=== PATIENT | female | born 1975 | race Caucasian/White ===

== ENCOUNTER 2016-07-19 07:08 | Emergency (ER) | payer MEDICAID ==
[~2016-07-19] VITALS: Ht 157.5 cm; Wt 113.6 kg
[~2016-07-19 07:08] MED LIST: ACET500T76 PO; ALPR0.5T6 PO; AMIT25TA PO; AMLO2.5T PO; ASCO100072 PO; ASPI-515 PO; ASPI-621 PO; BENA40TA2 PO; CHOL100018 PO; CHOL20003 PO; CLOT30CR17 TP; CYAN500T2 PO; DOXE75CA PO; FAMO20TA7 PO; FLUT1DIS3 INH; FOLI-17 PO; GABA300C10 PO; HYDR-3144 PO; HYDR-3307 PO; LEVO75TA PO; METF500T4 PO; MULT1TAB10 PO; MYCO500T3 PO; OMEG300C PO; POTA20TA14 PO; PRED5TAB19 PO; SIMV20TA3 PO; SUMA100T4 PO; TOPI-33 PO
[2016-07-19] MEDS ORDERED: ONDANSETRON 2MG/ML, 2ML IVPush ONE (08:00)
[2016-07-19] MEDS ORDERED: ONDANSETRON 2MG/ML, 2ML ONE (08:18)
[2016-07-19] MEDS ORDERED: MORPHINE SULFATE 4 MG/ML, 1ML ONE ×2 (08:18→09:11)
[2016-07-19] MEDS: MORPHINE SULFATE 4 MG/ML, 1ML IVPush PRN ×2 (08:19→09:12)
[2016-07-19 08:33] LABS: PATH.CAST-FLAG NOT PRESENT; SPERM-FLAG NOT PRESENT; SRC-FLAG NOT PRESENT; XTAL-FLAG NOT PRESENT; YLC-FLAG NOT PRESENT
[2016-07-19 08:57] LABS: HEMOGLOBIN 14.2 g/dL (11.7-16.4)
[2016-07-19] MEDS ORDERED: SODIUM CHLORIDE FLUSH 10ML SYR IVF ONE (09:00)
[2016-07-19 09:06] VITALS: BP 134/78
[2016-07-19 09:10] LABS: ASPARTATE AMINO TRANSFERASE 17 U/L (15-37); BLOOD UREA NITROGEN 13 mg/dL (7-18)
[2016-07-19] MEDS ORDERED: NITR100C6 PO (09:17)
== END 2016-07-19 11:06 | disposition home or self-care (01) ==
LOC: ED 09:04
DX: G89.29 Other chronic pain (principal); M79.661 Pain in right lower leg; M33.90 Dermatopolymyositis, unspecified, organ involvement unspecified; I10 Essential (primary) hypertension; E11.9 Type 2 diabetes mellitus without complications; E03.9 Hypothyroidism, unspecified; G43.909 Migraine, unspecified, not intractable, without status migrainosus
CPT/HCPCS: 36415; 73590; 80053; 81001; 85025; 85651; 87040; 87086; 93971; 96374; 96375; 96376; 99285; J2405

== ENCOUNTER 2016-08-09 11:53 | Emergency (ER) | payer MEDICAID ==
[~2016-08-09] VITALS: Ht 157.5 cm; Wt 111.8 kg
[~2016-08-09 11:53] MED LIST changes: +CLIN300C93 PO; +HYDR25TA11 PO; +NITR100C6 PO
[2016-08-09 11:54] VITALS: BP 146/92
[2016-08-09 13:19] LABS: HEMOGLOBIN 12.9 g/dL (11.7-16.4)
[2016-08-09 13:31] LABS: BLOOD UREA NITROGEN 15 mg/dL (7-18)
[2016-08-09] MEDS ORDERED: HYDROmorphone 1 MG/ML, 1ML ONE (13:59)
[2016-08-09] MEDS ORDERED: HYDROmorphone 1 MG/ML, 1ML IM ONE (14:00)
[2016-08-09] MEDS ORDERED: ONDANSETRON ODT 4 MG PO ONE (14:00)
[2016-08-09] MEDS ORDERED: ONDANSETRON ODT 4 MG ONE (14:07)
== END 2016-08-09 14:10 | disposition home or self-care (01) ==
LOC: ED 12:45
DX: M25.571 Pain in right ankle and joints of right foot (principal); K21.9 Gastro-esophageal reflux disease without esophagitis; I10 Essential (primary) hypertension; E11.9 Type 2 diabetes mellitus without complications; E03.9 Hypothyroidism, unspecified
CPT/HCPCS: 36415; 80048; 82040; 85025; 93971; 96372; 99285; J1170; Q0162

== ENCOUNTER 2016-11-22 09:35 | Emergency (ER) | payer MEDICAID ==
[~2016-11-22] VITALS: Ht 157.5 cm; Wt 114.0 kg
[~2016-11-22 09:35] MED LIST changes: +ACET500T71 PO; -ACET500T76 PO; +CHOL2000 PO; -CHOL20003 PO
[2016-11-22 09:38] VITALS: BP 140/84
[2016-11-22] MEDS ORDERED: HYDROcodone/APAP 5/325 TABLET ONE (10:23)
[2016-11-22] MEDS ORDERED: SODIUM CHLORIDE FLUSH 10ML SYR IVF ONE (10:30)
[2016-11-22] MEDS ORDERED: HYDROcodone/APAP 5/325 TABLET PO ONE (10:30)
[2016-11-22 11:01] LABS: BLOOD UREA NITROGEN 14 mg/dL (7-18)
[2016-11-22 11:03] LABS: ASPARTATE AMINO TRANSFERASE 13 U/L (15-37)
[2016-11-22] MEDS ORDERED: OMNIPAQUE 350 MG/ML, 75ML BOTTLE ONE (11:37)
== END 2016-11-22 12:19 | disposition home or self-care (01) ==
LOC: ED 12:16
DX: K11.21 Acute sialoadenitis (principal); I10 Essential (primary) hypertension; E11.9 Type 2 diabetes mellitus without complications; E03.9 Hypothyroidism, unspecified; E78.5 Hyperlipidemia, unspecified
CPT/HCPCS: 36415; 70487; 80053; 85025; 99285; Q9967

== ENCOUNTER 2017-01-06 11:21 | Emergency (ER) | payer MEDICAID ==
[~2017-01-06] VITALS: Ht 160 cm; Wt 115.7 kg
[~2017-01-06 11:21] MED LIST changes: +CHOL100012 PO; -CHOL100018 PO; +CLIN300C8 PO; -CLIN300C93 PO; -HYDR-3144 PO; +HYDR-3245 PO; -TOPI-33 PO; +TOPI25TA8 PO
[2017-01-06 11:26] VITALS: BP 146/88
[2017-01-06] MEDS ORDERED: PHENAZOPYRIDINE 200 MG TABLET PO ONE (12:00)
[2017-01-06 12:03] LABS: PATH.CAST-FLAG NOT PRESENT; SPERM-FLAG NOT PRESENT; SRC-FLAG NOT PRESENT; XTAL-FLAG NOT PRESENT; YLC-FLAG NOT PRESENT
[2017-01-06] MEDS ORDERED: PHENAZOPYRIDINE 200 MG TABLET ONE ×2 (12:09)
== END 2017-01-06 12:33 | disposition home or self-care (01) ==
LOC: ED 12:27
DX: N30.90 Cystitis, unspecified without hematuria (principal); E11.9 Type 2 diabetes mellitus without complications; I10 Essential (primary) hypertension; F41.9 Anxiety disorder, unspecified; K21.9 Gastro-esophageal reflux disease without esophagitis; E78.5 Hyperlipidemia, unspecified; E03.9 Hypothyroidism, unspecified
CPT/HCPCS: 81001; 87077; 87086; 99284

== ENCOUNTER 2017-05-09 10:18 | Emergency (ER) | payer MEDICAID ==
[~2017-05-09] VITALS: Ht 157.5 cm; Wt 117.6 kg
[2017-05-09] MEDS ORDERED: CYCL5TAB PO (11:19)
[2017-05-09] MEDS ORDERED: BENA40TA2 PO (11:19)
[2017-05-09] MEDS ORDERED: CLOT15CR5 TP (11:19)
[2017-05-09] MEDS ORDERED: NYST60PO TP (11:19)
[2017-05-09] MEDS ORDERED: HYDR-3245 PO (11:19)
[2017-05-09 11:37] LABS: MICROSCOPIC AUTO
[2017-05-09] MEDS ORDERED: TRIAMCINOLONE CRM 0.1%, 15GM TP ONE (12:06)
[2017-05-09] MEDS ORDERED: TRIAMCINOLONE ACETONIDE 40 MG/ML, 1ML IM ONE (13:11)
[2017-05-09 13:15] VITALS: BP 172/80
== END 2017-05-09 14:05 | disposition home or self-care (01) ==
LOC: ED 13:30
DX: L20.9 Atopic dermatitis, unspecified (principal); K21.9 Gastro-esophageal reflux disease without esophagitis; E03.9 Hypothyroidism, unspecified; E11.9 Type 2 diabetes mellitus without complications; I10 Essential (primary) hypertension
CPT/HCPCS: 81001; 96372; 99283; J3301

== ENCOUNTER 2017-07-22 20:14 | Emergency (ER) | payer MEDICAID ==
[~2017-07-22] VITALS: Ht 160 cm; Wt 118.0 kg
[~2017-07-22 20:14] MED LIST changes: +CLOT15CR5 TP; +CYCL5TAB PO; +NYST60PO TP
[2017-07-22 20:57] LABS: BASOPHILS # (AUTO) 0.01 x10^3/uL (0-0.1); BASOPHILS % (AUTO) 0 % (0-1); EOSINOPHILS # (AUTO) 0.07 x10^3/uL (0-0.4); EOSINOPHILS % (AUTO) 1 % (1-7); LYMPHOCYTES # (AUTO) 1.74 x10^3/uL (1-3.4); LYMPHOCYTES % (AUTO) 19 % (22-44); MD NO; MEAN CORPUSCULAR HEMOGLOBIN 26.9 pg (27.0-34.8); MEAN CORPUSCULAR HGB CONC 32.8 g/dL (32.4-35.8); MEAN CORPUSCULAR VOLUME 81.9 fL (80-100); MEAN PLATELET VOLUME 8.4 fL (7.4-10.4); MONOCYTES # (AUTO) 0.37 x10^3/uL (0.2-0.8); MONOCYTES % (AUTO) 4 % (2-9); NEUTROPHILS # (AUTO) 7.04 x10^3/uL (1.8-6.8); NEUTROPHILS % (AUTO) 76 % (42-75); PLATELET COUNT 212 x10^3/uL (130-400); RED BLOOD COUNT 5.18 x10^6/uL (3.82-5.3)
[2017-07-22 21:06] LABS: ALANINE AMINOTRANSFERASE 17 U/L (12-78); ALBUMIN 3.6 g/dL (3.4-5.0); ANION GAP 6 mmol/L (5-15); CALCIUM 8.8 mg/dL (8.5-10.1); CHLORIDE 108 mmol/L (98-107)
[2017-07-22 21:10] LABS: MICROSCOPIC AUTO
[2017-07-22 21:11] LABS: ALKALINE PHOSPHATASE 107 U/L (45-117); BILIRUBIN,TOTAL 0.3 mg/dL (0.2-1.0); CREATINE KINASE, TOTAL 68 U/L (26-192); TOTAL PROTEIN 7.3 g/dL (6.4-8.2); TROPONIN I < 0.015 ng/mL (0.000-0.045)
[2017-07-22 21:12] LABS: CULTURE INDICATED? YES
[2017-07-22 21:39] VITALS: BP 139/78
== END 2017-07-22 21:43 | disposition home or self-care (01) ==
LOC: ED 21:35
DX: I10 Essential (primary) hypertension (principal); N30.01 Acute cystitis with hematuria; E03.9 Hypothyroidism, unspecified; G43.909 Migraine, unspecified, not intractable, without status migrainosus; E11.9 Type 2 diabetes mellitus without complications; E78.5 Hyperlipidemia, unspecified; K21.9 Gastro-esophageal reflux disease without esophagitis
CPT/HCPCS: 36415; 71045; 80053; 81001; 82550; 84484; 85025; 87086; 93005; 99285

== ENCOUNTER 2018-03-05 11:22 | Emergency (ER) | payer MEDICAID ==
[~2018-03-05] VITALS: Ht 160 cm; Wt 113.0 kg
[~2018-03-05 11:22] MED LIST changes: -AMLO2.5T PO; +AMLO2.5T3 PO; -BENA40TA2 PO; +BENA40TA3 PO; +METF500T17 PO; -METF500T4 PO
[2018-03-05] MEDS ORDERED: TRAM50TA2 PO (12:01)
[2018-03-05] MEDS ORDERED: HYDR25TA6 PO (12:01)
[2018-03-05] MEDS ORDERED: TOPI25CA PO (12:01)
[2018-03-05] MEDS ORDERED: MORPHINE SULFATE 4 MG/ML, 1ML IVPush PRN (12:30)
[2018-03-05] MEDS ORDERED: ONDANSETRON 2MG/ML, 2ML IVPush ONE (12:30)
[2018-03-05] MEDS ORDERED: SODIUM CHLORIDE FLUSH 10ML SYR IVF ONE (12:30)
[2018-03-05] MEDS ORDERED: MORPHINE SULFATE 4 MG/ML, 1ML ONE (12:33)
[2018-03-05] MEDS ORDERED: ONDANSETRON 2MG/ML, 2ML ONE (12:33)
[2018-03-05 12:35] LABS: BASOPHILS # (AUTO) 0.07 x10^3/uL (0-0.1); BASOPHILS % (AUTO) 1 % (0-1); EOSINOPHILS # (AUTO) 0.07 x10^3/uL (0-0.4); EOSINOPHILS % (AUTO) 1 % (1-7); LYMPHOCYTES % (AUTO) 25 % (22-44); MD NO; MEAN CORPUSCULAR HGB CONC 32.9 g/dL (32.4-35.8); MEAN CORPUSCULAR VOLUME 82.1 fL (80-100); MONOCYTES # (AUTO) 0.35 x10^3/uL (0.2-0.8); MONOCYTES % (AUTO) 4 % (2-9); NEUTROPHILS # (AUTO) 5.58 x10^3/uL (1.8-6.8); NEUTROPHILS % (AUTO) 69 % (42-75); PLATELET COUNT 198 x10^3/uL (130-400); RED BLOOD COUNT 5.31 x10^6/uL (3.82-5.3); RED CELL DISTRIBUTION WIDTH 15.3 % (9.6-15.2)
[2018-03-05 12:46] LABS: ALANINE AMINOTRANSFERASE 25 U/L (12-78); ALBUMIN 3.8 g/dL (3.4-5.0); ANION GAP 10 mmol/L (5-15); CALCIUM 9.2 mg/dL (8.5-10.1); CHLORIDE 108 mmol/L (98-107)
[2018-03-05 12:49] LABS: ALKALINE PHOSPHATASE 90 U/L (45-117); BILIRUBIN,TOTAL 0.3 mg/dL (0.2-1.0); TOTAL PROTEIN 7.8 g/dL (6.4-8.2)
[2018-03-05 13:00] LABS: MICROSCOPIC AUTO
[2018-03-05 13:01] LABS: CULTURE INDICATED? YES
[2018-03-05] MEDS ORDERED: ONDANSETRON ODT 4 MG ONE (13:09)
[2018-03-05] MEDS ORDERED: HYDROmorphone 2 MG/ML, 1ML ONE (13:09)
[2018-03-05] MEDS ORDERED: ONDANSETRON ODT 4 MG PO ONE (13:30)
[2018-03-05] MEDS ORDERED: HYDROmorphone 2 MG/ML, 1ML IM ONE (13:30)
[2018-03-05] MEDS ORDERED: OMNIPAQUE 350 MG/ML, 100ML BOTTLE ONE (15:15)
[2018-03-05] MEDS ORDERED: MAALOX/HYOSCYAMINE/LIDOCAINE 45 ML BTL PO ONE (16:00)
[2018-03-05] MEDS ORDERED: MAALOX/HYOSCYAMINE/LIDOCAINE 45 ML BTL ONE (16:15)
[2018-03-05 16:47] VITALS: BP 168/75
== END 2018-03-05 17:01 | disposition home or self-care (01) ==
LOC: ED 13:20
DX: R10.11 Right upper quadrant pain (principal); E11.9 Type 2 diabetes mellitus without complications; F41.1 Generalized anxiety disorder; E03.9 Hypothyroidism, unspecified
CPT/HCPCS: 36415; 74022; 74177; 76700; 80053; 81001; 83690; 85025; 87086; 87147; 96372; 99285; J1170; Q0162; Q9967

== ENCOUNTER 2018-08-28 10:37 | Emergency (ER) | payer MEDICAID ==
[~2018-08-28] VITALS: Ht 160 cm; Wt 99.3 kg
[~2018-08-28 10:37] MED LIST changes: -AMLO2.5T3 PO; +AMLO2.5T5 PO; -ASPI-621 PO; +ASPI81TA45 PO; +HYDR25TA6 PO; +TOPI25CA PO; +TRAM50TA2 PO
--- NOTE | 2018-08-28 11:47 | NUR ---
BUCKET TURNER: PT TO ROOM FROM [facility].
--- NOTE | 2018-08-28 12:15 | NUR ---
TASK RN: patient transported for xray
[2018-08-28] MEDS ORDERED: KETOROLAC 30 MG/1 ML ONE (12:21)
[2018-08-28 12:28] LABS: MICROSCOPIC INDICATED
[2018-08-28] MEDS ORDERED: KETOROLAC 30 MG/1 ML IM ONE (12:30)
[2018-08-28 12:36] LABS: CULTURE INDICATED? YES
--- NOTE | 2018-08-28 12:52 | NUR ---
PT CHART REVIEWED AND PLACED FOR RECHECK.
[2018-08-28 12:59] VITALS: BP 120/71
== END 2018-08-28 13:58 | disposition home or self-care (01) ==
LOC: ED 12:07
DX: M54.6 Pain in thoracic spine (principal); K21.9 Gastro-esophageal reflux disease without esophagitis; E78.5 Hyperlipidemia, unspecified; E03.9 Hypothyroidism, unspecified; E11.9 Type 2 diabetes mellitus without complications; I10 Essential (primary) hypertension
CPT/HCPCS: 71045; 72072; 81001; 87086; 96372; 99284; J1885

== ENCOUNTER 2018-10-31 11:56 | Emergency (ER) | payer MEDICAID ==
[~2018-10-31] VITALS: Ht 160 cm; Wt 99.7 kg
--- NOTE | 2018-10-31 12:20 | NUR ---
PT PRESENTS WITH CHRONIC LOWER BACK/HIP PAIN. PAIN RADIATED FROM LOWER BACK DOWN LEFT LEG INTO FOOT. ER MD AT BEDSIDE
[2018-10-31] MEDS ORDERED: HYDROmorphone 2 MG/ML, 1ML ONE (12:37)
--- NOTE | 2018-10-31 12:43 | NUR ---
TASK RN: PT MEDICATED FOR PAIN PER EMAR. WILL REASSESS. PAIN PRE-MED 12/12
--- NOTE | 2018-10-31 12:44 | NUR ---
TASK RN: PT TO XRAY
[2018-10-31] MEDS ORDERED: HYDROmorphone 2 MG/ML, 1ML IM ONE (13:00)
[2018-10-31 13:02] VITALS: BP 157/99
[2018-10-31] MEDS ORDERED: MAALOX/HYOSCYAMINE/LIDOCAINE 45 ML BTL ONE (13:34)
[2018-10-31] MEDS ORDERED: MAALOX/HYOSCYAMINE/LIDOCAINE 45 ML BTL PO ONE (14:00)
== END 2018-10-31 15:03 | disposition home or self-care (01) ==
LOC: ED 12:39
DX: G89.29 Other chronic pain (principal); M54.16 Radiculopathy, lumbar region; M54.5 Low back pain; K21.9 Gastro-esophageal reflux disease without esophagitis; I10 Essential (primary) hypertension; E78.5 Hyperlipidemia, unspecified; E11.9 Type 2 diabetes mellitus without complications
CPT/HCPCS: 72110; 93005; 96372; 99283; J1170

== ENCOUNTER 2019-02-22 11:02 | Inpatient (IN) | payer MEDICAID ==
[~2019-02-22] VITALS: Ht 160 cm; Wt 108.2 kg
[~2019-02-22 11:02] MED LIST changes: +CEPH-376 PO; -CYAN500T2 PO; +CYAN500T54 PO; +HYDR-3237 PO; -HYDR-3307 PO; +HYDR-36 PO; +HYDR-826 PO; -HYDR25TA11 PO; +PANT20TA3 PO; -TOPI25CA PO; +TOPI25CA3 PO
[2019-02-22] MEDS ORDERED: ESOM20CA PO (11:05)
--- NOTE | 2019-02-22 11:10 | NUR ---
PT TO ROOM AT THIS TIME. Addendum: 02/22/19 at 1111 by [email or web address] PT AMBULATORY WITH STEADY GAIT TO ROOM
--- NOTE | 2019-02-22 11:22 | NUR ---
43 Y/O FEMALE PRESENTS TO ED WITH C/O BILATERAL LOWER LEG SWELLING. PER PT "I WAS HERE LAST WEEK WITH CELLULITIS. NOW I STILL FEEL LIKE MY RIGHT ANKLE IS SWOLLEN EVEN THOUGHT IT'S NOT. THE REDNESS ON MY INNER RIGHT ANKLE IS DARKER. I NOW HAVE SOME RED DOTS. I WAS SENT HOME ON KEFLEX. I FEEL LIKE I CAN'T RELAX, IT'S SO STIFF." EDMD BEDSIDE. NO ACUTE DISTRESS NOTED. PT PLACED ON CONT PULSE OX,NIBP. NO C/O N/V/D, TRAUMA, SYNCOPE, CP, SOB.
[2019-02-22] MEDS ORDERED: LORazepam 1MG TABLET PO ONE (11:30)
[2019-02-22] MEDS ORDERED: LORazepam 1MG TABLET ONE (11:38)
[2019-02-22 12:01] LABS: MEAN CORPUSCULAR HEMOGLOBIN 28.4 pg (27.0-34.8); MEAN PLATELET VOLUME 7.6 fL (7.4-10.4); PLATELET COUNT 232 x10^3/uL (130-400); RED BLOOD COUNT 4.73 x10^6/uL (3.82-5.3); RED CELL DISTRIBUTION WIDTH 14.6 % (9.6-15.2)
[2019-02-22 12:02] LABS: BASOPHILS # (AUTO) 0.03 x10^3/uL (0-0.1); BASOPHILS % (AUTO) 0 % (0-1); EOSINOPHILS % (AUTO) 3 % (1-7); LYMPHOCYTES # (AUTO) 1.17 x10^3/uL (1-3.4); LYMPHOCYTES % (AUTO) 18 % (22-44); MD NO; MONOCYTES # (AUTO) 0.27 x10^3/uL (0.2-0.8); MONOCYTES % (AUTO) 4 % (2-9); NEUTROPHILS # (AUTO) 4.91 x10^3/uL (1.8-6.8); NEUTROPHILS % (AUTO) 75 % (42-75)
[2019-02-22 12:07] LABS: ALBUMIN 3.5 g/dL (3.4-5.0); ANION GAP 8 mmol/L (5-15); CHLORIDE 110 mmol/L (98-107)
[2019-02-22 12:16] LABS: ALANINE AMINOTRANSFERASE 23 U/L (12-78); ALKALINE PHOSPHATASE 123 U/L (45-117); BILIRUBIN,TOTAL 0.6 mg/dL (0.2-1.0); CREATININE 1.22 mg/dL (0.55-1.02); TOTAL PROTEIN 7.6 g/dL (6.4-8.2)
[2019-02-22 12:30] LABS: HCT (SEDRATE) 40.7 % (34.6-47.8)
--- NOTE | 2019-02-22 12:34 | NUR ---
PT RESTING ON GURNEY. NO ACUTE DISTRESS NOTED. FRIEND BEDSIDE. NO NEEDS REQUESTED AT THIS TIME.
[2019-02-22] MEDS ORDERED: SODIUM CHLORIDE FLUSH 10ML SYR IVF ONE (13:30)
[2019-02-22] MEDS ORDERED: ONDANSETRON 2MG/ML, 2ML IVPush ONE (13:30)
[2019-02-22] MEDS ORDERED: HYDROmorphone 2 MG/ML, 1ML IVPush PRN (13:30)
[2019-02-22] MEDS ORDERED: SODIUM CHLORIDE FLUSH 10ML SYR IVF PRN (14:00)
--- NOTE | 2019-02-22 14:18 | NUR ---
LATE ENTRY FOR 1320 PT RESTING ON GURNEY. NO ACUTE DISTRESS NOTED. FRIEND BEDSIDE. PT VERBALIZED UNDERSTANDING OF POC.
--- NOTE | 2019-02-22 14:19 | NUR ---
PT RESTING ON [facility]. ADMITTING DR BEDSIDE. NO NEEDS REQUESTED AT THIS TIME.
--- NOTE | 2019-02-22 14:43 | NUR ---
REPORT TO LIZBET SANTIZO. ALL QUESTIONS ANSWERED. PIV ESTABLISHED. PT TOLERATED WITH NO COMPLICATIONS.
[2019-02-22] MEDS ORDERED: OMEP20TA62 PO (14:45)
[2019-02-22] MEDS ORDERED: SIMV20TA PO (14:53)
[2019-02-22] MEDS ORDERED: SUMA100T4 PO (14:53)
[2019-02-22] MEDS ORDERED: LEVO75TA PO (14:53)
[2019-02-22] MEDS ORDERED: MYCO500T3 PO (14:53)
[2019-02-22] MEDS ORDERED: TOPI50TA8 PO (14:53)
[2019-02-22] MEDS ORDERED: TRAM50TA2 PO (14:53)
[2019-02-22] MEDS ORDERED: GABA300C10 PO ×3 (14:53)
--- NOTE | 2019-02-22 14:53 | NUR ---
REPORT TO LIZBET SANTIZO. ALL QUESTIONS ANSWERED
--- NOTE | 2019-02-22 14:55 | NUR ---
MED REQ COMPLETED. PT BEING TRANSFERRED TO FLOOR. PT LEFT WITH ALL PERSONAL BELONGINGS.
[2019-02-22] MEDS ORDERED: LACTATED RINGERS 1,000 ML IVBOLUS ONE (15:00)
[2019-02-22] MEDS ORDERED: VANCOMYCIN PER PHARMACY MC PRN (15:00)
[2019-02-22] MEDS ORDERED: SUMATRIPTAN 100 MG TABLET PO PRN (15:00)
[2019-02-22] MEDS ORDERED: ONDANSETRON 2MG/ML, 2ML IVPush PRN (15:00)
[2019-02-22] MEDS ORDERED: MORPHINE SULFATE 4 MG/ML, 1ML IVPush PRN (15:00)
[2019-02-22] MEDS ORDERED: ONDANSETRON ODT 4 MG PO PRN (15:00)
[2019-02-22] MEDS ORDERED: ACETAMINOPHEN 325 MG TABLET PO PRN (15:00)
[2019-02-22] MEDS ORDERED: PHARMACOKINETIC MONITORING MC PRN (15:30)
[2019-02-22] MEDS ORDERED: VANCOMYCIN 2,000 MG in SODIUM CHLORIDE 0.9% 500 ML IV SCH (16:00)
[2019-02-22] MEDS: HEPARIN 5,000 UNITS/ML, 1ML SQ SCH (16:08)
[2019-02-22] MEDS: PIPERACILLIN/TAZO/PMX 3.375GM 50 ML IV SCH ×2 (16:10→21:43)
[2019-02-22] MEDS: HYDROcodone/APAP 5/325 TABLET PO PRN (16:10)
[2019-02-22 19:44] VITALS: BP 118/70
[2019-02-22] MEDS: SIMVASTATIN 20 MG TABLET PO SCH (20:17)
[2019-02-22] MEDS: GABAPENTIN 100 MG CAPSULE PO SCH (20:17)
[2019-02-22] MEDS: TOPIRAMATE 25 MG TABLET PO SCH (20:17)
[2019-02-22] MEDS: LACTATED RINGERS 1,000 ML IV SCH (20:18)
[2019-02-22] MEDS: DOXEPIN 100 MG CAPSULE PO SCH (21:43)
[2019-02-23] MEDS: HEPARIN 5,000 UNITS/ML, 1ML SQ SCH ×4 (00:24→23:05)
[2019-02-23 00:28] VITALS: BP 100/66
[2019-02-23] MEDS: LACTATED RINGERS 1,000 ML IV SCH ×3 (02:35→19:32)
[2019-02-23] MEDS: PIPERACILLIN/TAZO/PMX 3.375GM 50 ML IV SCH (03:58)
[2019-02-23 05:20] LABS: BASOPHILS % (AUTO) 0 % (0-1); EOSINOPHILS # (AUTO) 0.16 x10^3/uL (0-0.4); EOSINOPHILS % (AUTO) 3 % (1-7); LYMPHOCYTES # (AUTO) 1.01 x10^3/uL (1-3.4); LYMPHOCYTES % (AUTO) 18 % (22-44); MD NO; MEAN CORPUSCULAR HEMOGLOBIN 27.9 pg (27.0-34.8); MEAN CORPUSCULAR HGB CONC 32.7 g/dL (32.4-35.8); MEAN CORPUSCULAR VOLUME 85.4 fL (80-100); MEAN PLATELET VOLUME 7.5 fL (7.4-10.4); MONOCYTES # (AUTO) 0.31 x10^3/uL (0.2-0.8); MONOCYTES % (AUTO) 6 % (2-9); NEUTROPHILS # (AUTO) 4.15 x10^3/uL (1.8-6.8); NEUTROPHILS % (AUTO) 74 % (42-75); PLATELET COUNT 170 x10^3/uL (130-400); RED BLOOD COUNT 4.35 x10^6/uL (3.82-5.3); RED CELL DISTRIBUTION WIDTH 14.8 % (9.6-15.2)
[2019-02-23 05:32] LABS: CHLORIDE 111 mmol/L (98-107)
[2019-02-23 05:42] LABS: ANION GAP 8 mmol/L (5-15); CALCIUM 8.4 mg/dL (8.5-10.1); CREATININE 1.15 mg/dL (0.55-1.02)
[2019-02-23] MEDS: OMEPRAZOLE 20 MG CAPSULE.DR PO SCH (05:45)
[2019-02-23] MEDS: LEVOTHYROXINE 75 MCG TABLET PO SCH (05:45)
[2019-02-23] MEDS ORDERED: POTASSIUM CHLORIDE 40 MEQ in SODIUM CHLORIDE 0.9% 500 ML IV ONE (06:00)
[2019-02-23 06:05] LABS: HEMOGLOBIN A1C 5.3 % (4.2-6.3)
[2019-02-23 07:05] VITALS: BP 125/78
[2019-02-23] MEDS: GABAPENTIN 100 MG CAPSULE PO SCH ×2 (07:43→21:21)
[2019-02-23] MEDS: HYDROcodone/APAP 5/325 TABLET PO PRN (07:44)
[2019-02-23] MEDS: TOPIRAMATE 25 MG TABLET PO SCH ×2 (09:49→21:21)
[2019-02-23] MEDS ORDERED: DIPHENHYDRAMINE 25 MG CAPSULE PO PRN (10:00)
[2019-02-23] MEDS: AMOXICILLIN/CLAV 875-125MG TABLET PO SCH ×2 (11:25→23:05)
[2019-02-23 12:55] VITALS: BP 107/72
[2019-02-23 19:59] VITALS: BP 114/75
[2019-02-23] MEDS: DOXEPIN 100 MG CAPSULE PO SCH (21:21)
[2019-02-23] MEDS: SIMVASTATIN 20 MG TABLET PO SCH (21:21)
[2019-02-24 01:25] VITALS: BP 109/68
[2019-02-24] MEDS: LACTATED RINGERS 1,000 ML IV SCH (03:08)
[2019-02-24 06:11] LABS: BASOPHILS # (AUTO) 0.01 x10^3/uL (0-0.1); BASOPHILS % (AUTO) 0 % (0-1); EOSINOPHILS # (AUTO) 0.14 x10^3/uL (0-0.4); EOSINOPHILS % (AUTO) 2 % (1-7); LYMPHOCYTES # (AUTO) 0.99 x10^3/uL (1-3.4); LYMPHOCYTES % (AUTO) 13 % (22-44); MD NO; MEAN CORPUSCULAR HEMOGLOBIN 28.3 pg (27.0-34.8); MEAN CORPUSCULAR HGB CONC 32.8 g/dL (32.4-35.8); MEAN CORPUSCULAR VOLUME 86.4 fL (80-100); MEAN PLATELET VOLUME 7.5 fL (7.4-10.4); MONOCYTES % (AUTO) 3 % (2-9); NEUTROPHILS # (AUTO) 6.11 x10^3/uL (1.8-6.8); NEUTROPHILS % (AUTO) 82 % (42-75); PLATELET COUNT 171 x10^3/uL (130-400); RED BLOOD COUNT 3.97 x10^6/uL (3.82-5.3); RED CELL DISTRIBUTION WIDTH 14.5 % (9.6-15.2)
[2019-02-24] MEDS: LEVOTHYROXINE 75 MCG TABLET PO SCH (06:15)
[2019-02-24] MEDS: OMEPRAZOLE 20 MG CAPSULE.DR PO SCH (06:15)
[2019-02-24 06:17] LABS: ANION GAP 6 mmol/L (5-15); CALCIUM 8.4 mg/dL (8.5-10.1); CHLORIDE 111 mmol/L (98-107); CREATININE 0.95 mg/dL (0.55-1.02)
[2019-02-24 07:00] VITALS: BP 103/59
[2019-02-24] MEDS: HEPARIN 5,000 UNITS/ML, 1ML SQ SCH ×2 (07:51→15:52)
[2019-02-24] MEDS: GABAPENTIN 100 MG CAPSULE PO SCH ×2 (07:51→20:47)
[2019-02-24] MEDS: TOPIRAMATE 25 MG TABLET PO SCH ×2 (07:51→20:47)
[2019-02-24] MEDS: TRIAMCINOLONE CRM 0.1%, 15GM TP SCH ×2 (11:36→20:47)
[2019-02-24] MEDS: AMOXICILLIN/CLAV 875-125MG TABLET PO SCH ×2 (11:36→23:09)
[2019-02-24 14:02] VITALS: BP 123/83
[2019-02-24] MEDS: HYDROcodone/APAP 5/325 TABLET PO PRN (16:01)
[2019-02-24 19:28] VITALS: BP 132/84
[2019-02-24] MEDS: DOXEPIN 100 MG CAPSULE PO SCH (20:47)
[2019-02-24] MEDS: SIMVASTATIN 20 MG TABLET PO SCH (20:47)
[2019-02-25 01:09] VITALS: BP 127/78
[2019-02-25 05:07] LABS: ANION GAP 8 mmol/L (5-15); CALCIUM 8.5 mg/dL (8.5-10.1); CHLORIDE 109 mmol/L (98-107); CREATININE 0.93 mg/dL (0.55-1.02)
[2019-02-25] MEDS: LEVOTHYROXINE 75 MCG TABLET PO SCH (05:50)
[2019-02-25] MEDS: OMEPRAZOLE 20 MG CAPSULE.DR PO SCH (05:50)
[2019-02-25 07:33] VITALS: BP 126/80
[2019-02-25] MEDS: HEPARIN 5,000 UNITS/ML, 1ML SQ SCH ×2 (08:00)
[2019-02-25] MEDS: GABAPENTIN 100 MG CAPSULE PO SCH (08:07)
[2019-02-25] MEDS: TOPIRAMATE 25 MG TABLET PO SCH (08:07)
[2019-02-25] MEDS: TRIAMCINOLONE CRM 0.1%, 15GM TP SCH (08:08)
[2019-02-25] MEDS: AMOXICILLIN/CLAV 875-125MG TABLET PO SCH (11:16)
[2019-02-25] MEDS ORDERED: HYDR-3237 PO (12:23)
[2019-02-25] MEDS ORDERED: PRED10TA PO ×2 (12:24→14:14)
[2019-02-25 13:26] VITALS: BP 133/84
== END 2019-02-25 14:30 | disposition home or self-care (01) | DRG 346 ==
LOC: ED 13:41 → EDIP 13:42 → ED 13:55 → 3N 14:57 → DCLOUNGE 02-25 14:22
PROVIDERS: ADMIT Family Medicine; ATTEND Family Medicine
DX: M33.90 Dermatopolymyositis, unspecified, organ involvement unspecified (principal); E11.649 Type 2 diabetes mellitus with hypoglycemia without coma; L03.115 Cellulitis of right lower limb; L03.116 Cellulitis of left lower limb; Z68.41 Body mass index [BMI] 40.0-44.9, adult; M33.13 Other dermatomyositis without myopathy; E03.9 Hypothyroidism, unspecified; E66.9 Obesity, unspecified; E78.5 Hyperlipidemia, unspecified; E87.6 Hypokalemia; G43.909 Migraine, unspecified, not intractable, without status migrainosus; G47.00 Insomnia, unspecified; I10 Essential (primary) hypertension; K21.9 Gastro-esophageal reflux disease without esophagitis; Z95.810 Presence of automatic (implantable) cardiac defibrillator; Z98.84 Bariatric surgery status
CPT/HCPCS: 36415; 80048; 80053; 82550; 82962; 83036; 83605; 83735; 84550; 85025; 85651; 87040; 93970; 99285; G0378; J1644; J2543; J3370; J3480; J7040; J7120; J7512; J7517

== ENCOUNTER 2019-04-09 10:36 | Emergency (ER) | payer MEDICAID ==
[~2019-04-09] VITALS: Ht 160 cm; Wt 106.7 kg
[~2019-04-09 10:36] MED LIST changes: +ACET500T64 PO; -ACET500T71 PO; +ESOM20CA PO; +OMEP20TA62 PO; +PRED10TA PO; +SIMV20TA PO; +TOPI50TA8 PO
[2019-04-09 10:45] VITALS: BP 149/86
== END 2019-04-09 11:15 | disposition home or self-care (01) ==
LOC: ED 11:09
DX: K14.0 Glossitis (principal); K21.9 Gastro-esophageal reflux disease without esophagitis; E78.5 Hyperlipidemia, unspecified; E11.9 Type 2 diabetes mellitus without complications; I10 Essential (primary) hypertension; E03.9 Hypothyroidism, unspecified
CPT/HCPCS: 99283

== ENCOUNTER 2019-06-21 10:24 | Emergency (ER) | payer MEDICAID ==
[~2019-06-21] VITALS: Ht 160 cm; Wt 109.0 kg
[~2019-06-21 10:24] MED LIST changes: +SIMV20TA19 PO; -SIMV20TA3 PO
--- NOTE | 2019-06-21 11:00 | NUR ---
AMBULATORY TO ED ROOM 35 W/ STEADY GAIT, ACCOMPANIED BY FATHER
[2019-06-21] MEDS ORDERED: PREG50CA58 PO (11:06)
[2019-06-21] MEDS ORDERED: PANT20TA3 PO (11:06)
[2019-06-21] MEDS ORDERED: BARIATRIC FUSION VIT PO (11:06)
[2019-06-21] MEDS ORDERED: ATOR20TA86 PO (11:06)
[2019-06-21] MEDS ORDERED: DOXE100C PO (11:06)
[2019-06-21] MEDS ORDERED: BIOT25005 PO (11:06)
--- NOTE | 2019-06-21 11:10 | NUR ---
PT A&OX4, RESP EVEN & UNLABORED, SPEECH CLEAR. C/O GENERALIZED TOTAL BODY PAIN - MORE LEFT SIDED. WORSENS W/ WALKING, SLIGHT RELIEF W/ SITTING. STARTED W/ LT LEG PAIN DUE TO "TEAR IN MY HIP" A FEW WEEKS AGO. HX: DERMATOMYOSITIS. MRI (HEAD & NECK) DONE AT [facility] LAST WEEK, EKG DONE AT [facility] THE WEEK BEFORE.
--- NOTE | 2019-06-21 11:15 | NUR ---
DR PELAEZ BS FOR EXAM.
[2019-06-21] MEDS ORDERED: PREG50CA PO (11:27)
[2019-06-21] MEDS ORDERED: ACET-2065 PO (11:27)
[2019-06-21] MEDS ORDERED: HYDROcodone/APAP 5/325 TABLET PO ONE (11:30)
[2019-06-21] MEDS ORDERED: HYDROcodone/APAP 5/325 TABLET ONE (11:31)
--- NOTE | 2019-06-21 11:34 | NUR ---
NORCO GIVEN PER EMAR.
[2019-06-21 11:54] LABS: BASOPHILS # (AUTO) 0.02 x10^3/uL (0-0.1); BASOPHILS % (AUTO) 0 % (0-1); EOSINOPHILS # (AUTO) 0.05 x10^3/uL (0-0.4); EOSINOPHILS % (AUTO) 1 % (1-7); LYMPHOCYTES # (AUTO) 1.59 x10^3/uL (1-3.4); LYMPHOCYTES % (AUTO) 25 % (22-44); MD NO; MEAN CORPUSCULAR HEMOGLOBIN 27.8 pg (27.0-34.8); MEAN CORPUSCULAR VOLUME 84.3 fL (80-100); MEAN PLATELET VOLUME 8.8 fL (7.4-10.4); MONOCYTES # (AUTO) 0.23 x10^3/uL (0.2-0.8); MONOCYTES % (AUTO) 4 % (2-9); NEUTROPHILS # (AUTO) 4.58 x10^3/uL (1.8-6.8); NEUTROPHILS % (AUTO) 71 % (42-75); PLATELET COUNT 153 x10^3/uL (130-400); RED BLOOD COUNT 5.45 x10^6/uL (3.82-5.3); RED CELL DISTRIBUTION WIDTH 14.6 % (9.6-15.2)
[2019-06-21 12:05] LABS: ALANINE AMINOTRANSFERASE 25 U/L (12-78); ANION GAP 7 mmol/L (5-15); C-REACTIVE PROTEIN, QUANT 0.38 mg/dL (0.02-0.49); CALCIUM 8.9 mg/dL (8.5-10.1); CHLORIDE 111 mmol/L (98-107); CREATININE 0.97 mg/dL (0.55-1.02)
[2019-06-21 12:07] LABS: ALKALINE PHOSPHATASE 141 U/L (45-117); BILIRUBIN,TOTAL 0.4 mg/dL (0.2-1.0); CREATINE KINASE, TOTAL 63 U/L (26-192); TOTAL PROTEIN 8.2 g/dL (6.4-8.2)
[2019-06-21 12:18] LABS: HCT (SEDRATE) 45.9 % (34.6-47.8)
--- NOTE | 2019-06-21 12:37 | NUR ---
PT REPORTS MINIMAL RELIEF OF PAIN. STATES "NORCO MADE ME RELAX BUT STILL THE SAME PAIN"
[2019-06-21 13:47] VITALS: BP 135/78
--- NOTE | 2019-06-21 13:55 | NUR ---
2nd request to [place] for medical records
== END 2019-06-21 14:46 | disposition home or self-care (01) ==
LOC: ED 14:39
DX: S76.012A Strain of muscle, fascia and tendon of left hip, initial encounter (principal); G89.29 Other chronic pain; M79.10 Myalgia, unspecified site; I10 Essential (primary) hypertension; E03.9 Hypothyroidism, unspecified; K21.9 Gastro-esophageal reflux disease without esophagitis; E11.9 Type 2 diabetes mellitus without complications; X58.XXXA Exposure to other specified factors, initial encounter; Y93.89 Activity, other specified; Y92.89 Other specified places as the place of occurrence of the external cause; Y99.8 Other external cause status
CPT/HCPCS: 36415; 80053; 82550; 85025; 85651; 86140; 99285

== ENCOUNTER 2019-12-18 10:42 | Emergency (ER) | payer MEDICAID ==
[~2019-12-18] VITALS: Ht 160 cm; Wt 115.8 kg
[~2019-12-18 10:42] MED LIST changes: +ACET-2065 PO; +ATOR20TA86 PO; +BARIATRIC FUSION VIT PO; +BIOT25005 PO; +CLOT15CR26 TP; -CLOT15CR5 TP; +DOXE100C PO; +HYDR-3246 PO; -HYDR-36 PO; +PREG50CA PO; +PREG50CA58 PO
[2019-12-18 10:46] VITALS: BP 155/97
--- NOTE | 2019-12-18 11:01 | NUR ---
PT C/O ACUTE ON CHRONIC PAIN IN LEFT LEG. PAIN SHOOTS UP LEG WHEN STEPS DOWN ON FOOT. PT AMBULATED TO ROOM WITH STEADY GAIT. PT CONNECTED TO MONITORING. CALL LIGHT IN REACH.
[2019-12-18] MEDS ORDERED: METHOCARBAMOL 750 MG TABLET ONE (11:16)
[2019-12-18] MEDS ORDERED: OXYcodone/APAP 5/325MG TABLET ONE (11:17)
--- NOTE | 2019-12-18 11:19 | NUR ---
INDUSTRIAL TECH INSTRUCTOR PER MAR.
--- NOTE | 2019-12-18 11:52 | NUR ---
ALL RESULTS ARE BACK AT THIS TIME. CHART UP FOR RECHECK.
[2019-12-18] MEDS ORDERED: OXYcodone/APAP 5/325MG TABLET PO ONE (12:00)
[2019-12-18] MEDS ORDERED: METHOCARBAMOL 750 MG TABLET PO ONE (12:00)
--- NOTE | 2019-12-18 12:07 | NUR ---
PROVIDER AT BEDSIDE TO UPDATE PT ON POC.
[2019-12-18] MEDS ORDERED: KETOROLAC 30 MG/1 ML ONE (12:14)
--- NOTE | 2019-12-18 12:17 | NUR ---
HEAVY EQUIPMENT PLUMBING SUPERVISOR PER MAR.
[2019-12-18] MEDS ORDERED: KETOROLAC 30 MG/1 ML IM ONE (12:30)
== END 2019-12-18 12:32 | disposition home or self-care (01) ==
LOC: ED 12:01
DX: G89.29 Other chronic pain (principal); M54.5 Low back pain; M76.892 Other specified enthesopathies of left lower limb, excluding foot
CPT/HCPCS: 72110; 73502; 96372; 99284; J1885

== ENCOUNTER 2020-01-08 10:38 | Emergency (ER) | payer MEDICAID ==
[~2020-01-08] VITALS: Ht 160 cm; Wt 115.0 kg
[~2020-01-08 10:38] MED LIST changes: -PANT20TA3 PO; +PANT20TA4 PO
[2020-01-08] MEDS ORDERED: NYSTATIN TOPICAL POWDER 15GM TP PRN (11:30)
[2020-01-08 12:03] VITALS: BP 130/64
== END 2020-01-08 12:15 | disposition home or self-care (01) ==
LOC: ED 11:15
DX: B37.89 Other sites of candidiasis (principal)
CPT/HCPCS: 99283

== ENCOUNTER 2020-03-23 10:08 | Emergency (ER) | payer MEDICAID ==
[~2020-03-23] VITALS: Ht 160 cm; Wt 114.5 kg
[2020-03-23 10:25] VITALS: BP 159/106
[2020-03-23] MEDS ORDERED: DEXAMETHASONE 4 MG/ML, 5ML ONE (11:14)
[2020-03-23 11:15] LABS: BASOPHILS % (AUTO) 1 % (0-1); EOSINOPHILS % (AUTO) 2 % (1-7); LYMPHOCYTES % (AUTO) 24 % (22-44); MEAN CORPUSCULAR HEMOGLOBIN 27.7 pg (27.0-34.8); MEAN CORPUSCULAR HGB CONC 33.1 g/dL (32.4-35.8); MEAN PLATELET VOLUME 9.1 fL (7.4-10.4); MONOCYTES % (AUTO) 4 % (2-9); NEUTROPHILS % (AUTO) 69 % (42-75); PLATELET COUNT 254 x10^3/uL (130-400); RED BLOOD COUNT 5.27 x10^6/uL (3.82-5.3)
[2020-03-23 11:17] LABS: MD NO
[2020-03-23 11:26] LABS: ALANINE AMINOTRANSFERASE 21 U/L (12-78); ALBUMIN 3.8 g/dL (3.4-5.0); ALKALINE PHOSPHATASE 140 U/L (45-117); ANION GAP 8 mmol/L (5-15); BILIRUBIN,TOTAL 0.6 mg/dL (0.2-1.0); CHLORIDE 112 mmol/L (98-107); CREATININE 0.97 mg/dL (0.55-1.02); TOTAL PROTEIN 8.3 g/dL (6.4-8.2)
[2020-03-23] MEDS ORDERED: DEXAMETHASONE 4 MG/ML, 1ML PO ONE (11:30)
--- NOTE | 2020-03-23 13:14 | NUR ---
ATTEMPT TO DC. PT STATES "I HAVE BEEN TAKING AN ABX FOR UTI SX. I HAVE TWO LEFT AND DONT FEEL LIKE ITS WORKING" DISCUSSED WITH DR KIRK, PT TO BR TO PROVIDE URINE SPECIMAN.
[2020-03-23 13:47] LABS: MICROSCOPIC INDICATED
[2020-03-23] MEDS ORDERED: PHENAZOPYRIDINE 200 MG TABLET PO ONE (14:00)
[2020-03-23] MEDS ORDERED: PHENAZOPYRIDINE 200 MG TABLET ONE (14:57)
--- NOTE | 2020-03-23 15:01 | NUR ---
REVIEWED DC INSTRUCTIONS WITH PT, UNDERSTANDING VERBALIZED. NO IV TO DC. PT LEFT AMB, GAIT STEADY. NO ACUTE DISTRESS NOTED.
== END 2020-03-23 15:03 | disposition home or self-care (01) ==
LOC: ED 11:36
DX: B34.9 Viral infection, unspecified (principal); Z20.828 Contact with and (suspected) exposure to other viral communicable diseases; H92.02 Otalgia, left ear; E11.9 Type 2 diabetes mellitus without complications; I10 Essential (primary) hypertension; E03.9 Hypothyroidism, unspecified; K21.9 Gastro-esophageal reflux disease without esophagitis
CPT/HCPCS: 36415; 71045; 80053; 81001; 85025; 87081; 87086; 87635; 87880; 99284; J1100

== ENCOUNTER 2020-04-09 11:42 | Emergency (ER) | payer MEDICAID ==
[~2020-04-09] VITALS: Ht 160 cm; Wt 115.0 kg
[~2020-04-09 11:42] MED LIST changes: -CLIN300C8 PO; +CLIN300C9 PO; +CYAN500T53 PO; -CYAN500T54 PO
[2020-04-09 11:46] VITALS: BP 165/96
--- NOTE | 2020-04-09 13:00 | NUR ---
PT CONCERNED BECAUSE OF LOSS OF TASTE AND SMELL. PT HAS HAD A POSITIVE COVID TEST RECENTLY.
== END 2020-04-09 13:34 | disposition home or self-care (01) ==
LOC: ED 12:22
DX: J06.9 Acute upper respiratory infection, unspecified (principal); Z20.828 Contact with and (suspected) exposure to other viral communicable diseases; B34.9 Viral infection, unspecified; I10 Essential (primary) hypertension; E11.9 Type 2 diabetes mellitus without complications; K21.9 Gastro-esophageal reflux disease without esophagitis; E03.9 Hypothyroidism, unspecified; E78.5 Hyperlipidemia, unspecified
CPT/HCPCS: 71045; 87635; 99284

== ENCOUNTER 2020-09-04 08:41 | Emergency (ER) | payer MEDICAID ==
[~2020-09-04] VITALS: Ht 160 cm; Wt 119.9 kg
[~2020-09-04 08:41] MED LIST changes: -ALPR0.5T6 PO; +ALPR0.5T93 PO; -ASPI-515 PO; +ASPI-963 PO; -CYAN500T53 PO; +CYAN500T7 PO; -FOLI-17 PO; +FOLI1TAB32 PO; -HYDR-3245 PO; -HYDR-3246 PO; +HYDR-3248 PO; +HYDR1TAB53 PO
[2020-09-04 09:00] VITALS: BP 185/95
--- NOTE | 2020-09-04 09:24 | NUR ---
CLEAN CATCH URINE COLLECTED AND SENT TO LAB. PRIMITIVO PEARSON AT BEDSIDE. PT ASSESSMENT AND POC DISCUSSED AND QUESTIONS ANSWERED. CALL LIGHT W/I REACH
[2020-09-04 09:54] LABS: MICROSCOPIC AUTO
--- NOTE | 2020-09-04 10:07 | NUR ---
TESTS RESULTED, CHART UP FOR RECHECK. PT AWARE.
--- NOTE | 2020-09-04 10:23 | NUR ---
Patient/Caregiver given discharge instructions and they have confirmed that they understand the instructions. Patient ambulatory with steady gait.
== END 2020-09-04 10:24 | disposition home or self-care (01) ==
LOC: ED 10:17
DX: N30.00 Acute cystitis without hematuria (principal); I10 Essential (primary) hypertension; E11.9 Type 2 diabetes mellitus without complications; K21.9 Gastro-esophageal reflux disease without esophagitis; E03.9 Hypothyroidism, unspecified; G43.909 Migraine, unspecified, not intractable, without status migrainosus
CPT/HCPCS: 81001; 87086; 99283

== ENCOUNTER 2020-12-20 14:03 | Emergency (ER) | payer MEDICAID ==
[~2020-12-20] VITALS: Ht 160 cm; Wt 117.4 kg
--- NOTE | 2020-12-20 14:20 | NUR ---
PT AMBULATES WELL TO BATHROOM INDEPENDENTLY
[2020-12-20] MEDS ORDERED: NORT25CA78 PO (14:25)
[2020-12-20] MEDS ORDERED: CETI10CA PO (14:25)
[2020-12-20] MEDS ORDERED: ALEN70TA77 PO (14:25)
[2020-12-20] MEDS ORDERED: MYCO500T3 PO (14:25)
[2020-12-20] MEDS ORDERED: MULT1TAB9 PO (14:25)
--- NOTE | 2020-12-20 14:34 | NUR ---
UA COLLECTED, PT UNABLE TO PRODUCE STOOL SAMPLE. HAT FOR STOOL IN ROOM. ERNP IN TO ASSESS PT. SIDE RAIL UP, CALL LIGHT IN REACH. AWAITING ORDERS.
--- NOTE | 2020-12-20 14:53 | NUR ---
BEDSIDE REPORT TO LIZBET CASEY.
[2020-12-20] MEDS ORDERED: SODIUM CHLORIDE 0.9% 1,000ML IVBOLUS ONE (15:00)
[2020-12-20] MEDS ORDERED: SODIUM CHLORIDE FLUSH 10ML SYR IVF ONE (15:00)
[2020-12-20] MEDS ORDERED: ONDANSETRON 2MG/ML, 2ML IVPush ONE (15:00)
[2020-12-20] MEDS ORDERED: ONDANSETRON 2MG/ML, 2ML ONE (15:08)
[2020-12-20] MEDS ORDERED: MORPHINE SULFATE 4 MG/ML, 1ML ONE ×2 (15:09→17:32)
[2020-12-20] MEDS: MORPHINE SULFATE 4 MG/ML, 1ML IVPush PRN ×2 (15:24→17:37)
--- NOTE | 2020-12-20 15:27 | NUR ---
PIV PLACED BY TASK RN VIA . UNABLE TO DRAW LABS. LAB NOTIFIED. MEDS ADMIN PER JUL. IVF RUNNING. PT CONNECTED TO MONITORING. CALL LIGHT IN REACH.
--- NOTE | 2020-12-20 15:40 | NUR ---
REPORT FROM JACINTO SOMERS
[2020-12-20 16:10] LABS: BASOPHILS % (AUTO) 1 % (0-1); EOSINOPHILS % (AUTO) 1 % (1-7); LYMPHOCYTES % (AUTO) 22 % (22-44); MEAN CORPUSCULAR HEMOGLOBIN 26.6 pg (27.0-34.8); MEAN CORPUSCULAR HGB CONC 32.5 g/dL (32.4-35.8); MEAN PLATELET VOLUME 8.5 fL (7.4-10.4); MONOCYTES % (AUTO) 4 % (2-9); NEUTROPHILS % (AUTO) 72 % (42-75); PLATELET COUNT 181 x10^3/uL (130-400); RED BLOOD COUNT 5.88 x10^6/uL (3.82-5.3); RED CELL DISTRIBUTION WIDTH 15.4 % (9.6-15.2)
[2020-12-20 16:13] LABS: MICROSCOPIC INDICATED
[2020-12-20 16:23] LABS: ALANINE AMINOTRANSFERASE 26 U/L (12-78); ANION GAP 7 mmol/L (5-15); CALCIUM 9.5 mg/dL (8.5-10.1); CHLORIDE 106 mmol/L (98-107); CREATININE 0.86 mg/dL (0.55-1.02)
[2020-12-20 16:25] LABS: ALKALINE PHOSPHATASE 131 U/L (45-117); BILIRUBIN,TOTAL 0.3 mg/dL (0.2-1.0); TOTAL PROTEIN 8.7 g/dL (6.4-8.2)
--- NOTE | 2020-12-20 16:51 | NUR ---
PT TO IMAGING
[2020-12-20] MEDS ORDERED: OMNIPAQUE 350 MG/ML, 100ML BOTTLE ONE (17:12)
--- NOTE | 2020-12-20 17:37 | NUR ---
CC OF CP THAT COMES AND GOES. PT CONNECTED TO CARDIAC MONITORS AND EKG REPEATED. MORPHINE 4 MG GIVEN IVP. PT UPDATED OF UTI AND CT RESULTS BY ISMA ADLER.
[2020-12-20 18:23] VITALS: BP 137/69
--- NOTE | 2020-12-20 18:23 | NUR ---
PT REPORTS CP IS "MUCH BETTER". UP FOR DC. EDUCATED ON MEDS AND PIV DC WITH TIP INTACT. PT WITH FATHER AND AMBULATORY TO DC DESK. ALL QUESTIONS ANSWERED
== END 2020-12-20 18:26 | disposition home or self-care (01) ==
LOC: ED 14:33
DX: N39.0 Urinary tract infection, site not specified (principal); R10.31 Right lower quadrant pain; R94.31 Abnormal electrocardiogram [ECG] [EKG]; I10 Essential (primary) hypertension; E11.9 Type 2 diabetes mellitus without complications; E78.5 Hyperlipidemia, unspecified; K21.9 Gastro-esophageal reflux disease without esophagitis
CPT/HCPCS: 36415; 74177; 80053; 81001; 83690; 85025; 87077; 87086; 87186; 93005; 96361; 96374; 96375; 96376; 99285; J2270; J2405; J7030; Q9967